=== PATIENT | female | born 1970 | race Caucasian/White ===

== ENCOUNTER → 2017-05-23 | Outpatient (CLI) | payer OTHER ==
[~2017-05-23] MED LIST: ASPI81TA21 PO; CHOL100027 PO; GADAVIST IV PRN; METFTAB PO; NAPR250T43 PO; NF656
--- NOTE | 2017-05-26 07:44 | DIAGNOSTIC IMAGING REPORT ---
BRAIN COMBO FOR TRIGEMINAL CLINICAL HISTORY: 46 years-old Female presenting with Cervico-occipital neuralgia of left side, Trigeminal neuralgia. TECHNIQUE: Multisequence, multiplanar MR imaging of the brain was performed before and after the administration of intravenous contrast. IV contrast: 8 mL of Gadavist. COMPARISON: 08/09/2016. FINDINGS: Ventricles and sulci normal in size. Previously noted 2 stable punctate foci of T2/FLAIR hyperintensity within the right frontal subcortical white matter, unchanged. No new abnormal signal intensity within the brain parenchyma. Nerve roots at the skull base are normal in appearance. Normal internal auditory canals. No mass lesion within Meckel's cave. No mass effect or midline shift. No restricted diffusion to suggest acute ischemia. No hemorrhage. No extra-axial fluid collection. T2 skull base flow voids preserved. No abnormal parenchymal enhancement. Intracranial vasculature grossly patent. Bone marrow signal intensity within the calvarium within normal limits. IMPRESSION: Stable nonspecific foci of white matter abnormality in the right frontal region. No acute intracranial pathology. No abnormal enhancement. Electronically signed by: James Cooney M.D. 05/23/2017 7:07 PM Dictated Date/Time: 05/23/2017 6:53 PM
== END | disposition home or self-care (01) ==
LOC: C.MRI 17:21
PROVIDERS: ATTEND Psychiatry & Neurology Neurology
DX: G50.0 Trigeminal neuralgia (principal); M54.81 Occipital neuralgia; R20.0 Anesthesia of skin; R90.82 White matter disease, unspecified

== ENCOUNTER → 2017-10-29 | Outpatient (CLI) | payer OTHER ==
[~2017-10-29] MED LIST changes: -GADAVIST IV PRN
== END | disposition home or self-care (01) ==
LOC: C.PAPS 09:15
PROVIDERS: ATTEND Family Medicine
DX: Z00.00 Encounter for general adult medical examination without abnormal findings (principal)